=== PATIENT | male | born 1975 | race Hispanic/Latino ===

== ENCOUNTER 2024-08-23 11:06 | Inpatient (IN) | payer SELFPAY ==
[2024-08-23] MEDS ORDERED: Glucagon,Human Recombinant 1 MG Vial IM PRN ×2 (11:08→17:49)
[2024-08-23] MEDS ORDERED: 50% Dextrose in Water 50 ML Syringe IVPUSH PRN ×2 (11:08→17:49)
[2024-08-23 11:18] LABS: BASOPHILS ABSOLUTE AUTO 0.08 K/uL (0.00-0.20); BASOPHILS PERCENT AUTO 0.8 % (0.0-1.0); EOSINOPHILS ABSOLUTE AUTO 0.05 K/uL (0.00-0.45); EOSINOPHILS PERCENT AUTO 0.5 % (0.0-6.0); HEMATOCRIT 42.1 % (42.0-52.0); HEMOGLOBIN 13.9 g/dL (14.0-18.0); IMMATURE GRAN ABSOLUTE AUTO 0.09 K/uL (0.00-0.05); IMMATURE GRAN PERCENT AUTO 0.9 % (0.0-0.4); LYMPHOCYTES ABSOLUTE AUTO 0.91 K/uL (1.00-4.80); LYMPHOCYTES PERCENT AUTO 8.8 % (24.0-44.0); MEAN CORPUSCULAR HEMOGLOBIN 28.2 pg (28.0-32.0); MEAN CORPUSCULAR VOLUME 85.4 fL (83.0-99.0); MEAN PLATELET VOLUME 9.7 fL (9.4-12.4); MONOCYTES ABSOLUTE AUTO 0.35 K/uL (0.00-0.80); MONOCYTES PERCENT AUTO 3.4 % (0.0-8.0); NEUTROPHILS ABSOLUTE AUTO 8.85 K/uL (1.80-7.70); NEUTROPHILS PERCENT AUTO 85.6 % (41.0-71.0); PLATELET COUNT,PLT 350 K/uL (150-400); RED BLOOD CELL COUNT 4.93 M/uL (4.52-5.90); WHITE BLOOD CELL COUNT,WBC 10.33 K/uL (3.9-11.3)
[2024-08-23 11:21] LABS: BASE EXCESS VENOUS -0.5 (-2.0-3.0); PH,VENOUS 7.34 (7.32-7.43)
[2024-08-23] MEDS: Sodium Chloride 0.9% 1,000 ML IV ONE ×2 (11:36→13:30)
[2024-08-23] MEDS: Insulin Regular, Human 100 Units/ML 10 ML Vial IVPUSH ONE ×2 (11:36→14:54)
[2024-08-23] MEDS: Ondansetron 4 MG/2 ML SDV IVPUSH ONE (11:36)
[2024-08-23 11:57] LABS: A/G RATIO 0.7 (0.9-1.6); ACETAMINOPHEN <2.0 ug/mL; ALANINE AMINOTRANSFERASE,ALT 47 IU/L (14-63); ALBUMIN 3.3 g/dL (3.4-5.0); ALKALINE PHOSPHATASE 115 U/L (46-116); ASPARTATE AMNIOTRANSFERASE,AST 43 IU/L (15-37); BILIRUBIN TOTAL 0.3 mg/dL (0.2-1.0); BLOOD UREA NITROGEN,BUN 58 mg/dL (7.0-18.0); CALCIUM 9.6 mg/dL (8.5-10.1); CARBON DIOXIDE,CO2 25.4 mmol/L (21.0-32.0); CHLORIDE,CL 105 mmol/L (98-107); CREATININE 2.8 mg/dL (0.8-1.3); EST CRCL DRUG DOSING (CG) 31.56 mL/min; ETHANOL BLOOD MEDICAL <3 mg/dL; GLUCOSE RANDOM 424 mg/dL (74-106); LIPASE 27 U/L (16-77); MAGNESIUM 2.9 mg/dL (1.8-2.4); POTASSIUM,K 4.3 mmol/L (3.5-5.1); PRO B-TYPE NATRIUR PEPT,BNPPRO 231 pg/mL (0-125); PROTEIN TOTAL,TP 8.1 g/dL (6.4-8.2); SALICYLATE 1.6 mg/dL (0.0-20.0); SODIUM,NA 142 mmol/L (136-148)
[2024-08-23 12:04] LABS: ESTIMATED GFR 27 mL/min (>60)
[2024-08-23] MEDS: Labetalol 100 MG/20 ML MDV IVPUSH ONE (12:24)
[2024-08-23 12:29] LABS: APPEARANCE,URINE CLEAR; BILIRUBIN,URINE NEGATIVE (NEGATIVE); COLOR,URINE YELLOW; GLUCOSE,URINE >=1000 mg/dL (NEGATIVE); KETONES,URINE NEGATIVE (NEGATIVE); LEUKOCYTE ESTERASE,URINE NEGATIVE (NEGATIVE); NITRITE,URINE NEGATIVE (NEGATIVE); OCCULT BLOOD,URINE MODERATE (NEGATIVE); PROTEIN,URINE 100 mg/dL (NEGATIVE); UROBILINOGEN,URINE 0.2 EU/dL (<2.0)
[2024-08-23 12:39] LABS: AMPHETAMINES SCREEN, URINE NEGATIVE (CUTOFF=500); BARBITURATE SCREEN,URINE NEGATIVE (CUTOFF=200); BENZODIAZEPINES SCREEN,URINE NEGATIVE (CUTOFF=150); BUPRENORPHINE SCREEN,URINE NEGATIVE (CUTOFF=10); METHADONE SCREEN, URINE NEGATIVE (CUTOFF=200); METHAMPHETAMINES SCREEN, URINE NEGATIVE (CUTOFF=500); OXYCODONE SCREEN,URINE NEGATIVE (CUT0FF=100); PCP SCREEN,URINE NEGATIVE (CUTOFF=25); THC SCREEN,URINE 20 NG/ML NEGATIVE (CUTOFF=50)
[2024-08-23 13:19] LABS: BACTERIA,URINE RARE (NEGATIVE); EPITHELIAL CELLS,URINE FEW (NONE-FEW); YEAST,URINE FEW
[2024-08-23 14:01] LABS: A/G RATIO 0.7 (0.9-1.6); BILIRUBIN TOTAL 0.2 mg/dL (0.2-1.0); CALCIUM 8.9 mg/dL (8.5-10.1); CARBON DIOXIDE,CO2 25.5 mmol/L (21.0-32.0); CREATININE 2.5 mg/dL (0.8-1.3); EST CRCL DRUG DOSING (CG) 35.35 mL/min; POTASSIUM,K 4.1 mmol/L (3.5-5.1); PROTEIN TOTAL,TP 7.5 g/dL (6.4-8.2)
[2024-08-23] MEDS: hydrALAZINE 20 MG/ML SDV IVPUSH ONE ×2 (14:16→18:51)
[2024-08-23] MEDS: cloNIDine 0.1 MG Tab PO ONE (14:53)
[2024-08-23] MEDS ORDERED: Nitroglycerin 2% Oint 1 GM UD Packet TOP ONE (15:13)
[2024-08-23 15:48] LABS: HEMOGLOBIN A1C 8.9 %
[2024-08-23] MEDS: Sodium Chloride 0.9% 1,000 ML IV SCH (17:57)
[2024-08-23] MEDS: Insulin Aspart 100 Units/ML 3 ML Pen SUBCUT SCH (17:58)
[2024-08-23] MEDS: Labetalol 100 MG/20 ML MDV IVPUSH PRN (18:11)
[2024-08-23] MEDS: Morphine 2 MG/ML SYRINGE IVPUSH ONE (18:11)
[2024-08-23] MEDS: LORazepam 2 MG/ML SDV IVPUSH ONE (18:50)
[2024-08-23] MEDS: amLODIPine 5 MG Tab PO SCH (18:58)
[2024-08-23] MEDS: oxyCODONE 5 MG Tab PO SCH (19:07)
[2024-08-24] MEDS ORDERED: niCARdipine/Normal Saline 20 MG in Premix Bag 1 BAG IV SCH (00:15)
[2024-08-24] MEDS ORDERED: Naloxone 0.4 MG/ML SDV IVPUSH PRN (00:44)
[2024-08-24] MEDS: Carvedilol 12.5 MG Tab PO ONE (01:01)
[2024-08-24] MEDS: Morphine 2 MG/ML SYRINGE IVPUSH ONE (01:03)
[2024-08-24 05:50] LABS: BASOPHILS ABSOLUTE AUTO 0.05 K/uL (0.00-0.20); BASOPHILS PERCENT AUTO 0.4 % (0.0-1.0); EOSINOPHILS ABSOLUTE AUTO 0.38 K/uL (0.00-0.45); EOSINOPHILS PERCENT AUTO 2.8 % (0.0-6.0); HEMATOCRIT 38.5 % (42.0-52.0); HEMOGLOBIN 12.7 g/dL (14.0-18.0); IMMATURE GRAN ABSOLUTE AUTO 0.04 K/uL (0.00-0.05); IMMATURE GRAN PERCENT AUTO 0.3 % (0.0-0.4); LYMPHOCYTES ABSOLUTE AUTO 2.31 K/uL (1.00-4.80); LYMPHOCYTES PERCENT AUTO 17.3 % (24.0-44.0); MEAN CORPUSCULAR HEMOGLOBIN 28.6 pg (28.0-32.0); MEAN CORPUSCULAR VOLUME 86.7 fL (83.0-99.0); MONOCYTES ABSOLUTE AUTO 0.93 K/uL (0.00-0.80); NEUTROPHILS ABSOLUTE AUTO 9.65 K/uL (1.80-7.70); NEUTROPHILS PERCENT AUTO 72.2 % (41.0-71.0); PLATELET COUNT,PLT 315 K/uL (150-400); RED BLOOD CELL COUNT 4.44 M/uL (4.52-5.90); WHITE BLOOD CELL COUNT,WBC 13.36 K/uL (3.9-11.3)
[2024-08-24 06:12] LABS: CALCIUM 8.5 mg/dL (8.5-10.1); CARBON DIOXIDE,CO2 23.4 mmol/L (21.0-32.0); CREATININE 1.8 mg/dL (0.8-1.3); EST CRCL DRUG DOSING (CG) 49.1 mL/min; POTASSIUM,K 3.6 mmol/L (3.5-5.1)
[2024-08-24] MEDS: oxyCODONE 5 MG Tab PO PRN (06:57)
[2024-08-24] MEDS: Ondansetron 4 MG/2 ML SDV IVPUSH PRN (06:57)
[2024-08-24] MEDS: Carvedilol 12.5 MG Tab PO SCH (08:15)
[2024-08-24] MEDS: amLODIPine 5 MG Tab PO ONE (11:22)
[2024-08-24] MEDS: Gabapentin 300 MG Cap PO SCH (20:06)
[2024-08-25 05:27] LABS: BASOPHILS ABSOLUTE AUTO 0.06 K/uL (0.00-0.20); BASOPHILS PERCENT AUTO 0.5 % (0.0-1.0); EOSINOPHILS ABSOLUTE AUTO 0.33 K/uL (0.00-0.45); EOSINOPHILS PERCENT AUTO 2.9 % (0.0-6.0); HEMATOCRIT 38.2 % (42.0-52.0); HEMOGLOBIN 12.6 g/dL (14.0-18.0); IMMATURE GRAN ABSOLUTE AUTO 0.04 K/uL (0.00-0.05); IMMATURE GRAN PERCENT AUTO 0.4 % (0.0-0.4); LYMPHOCYTES ABSOLUTE AUTO 2.11 K/uL (1.00-4.80); LYMPHOCYTES PERCENT AUTO 18.5 % (24.0-44.0); MEAN CORPUSCULAR HEMOGLOBIN 28.5 pg (28.0-32.0); MEAN CORPUSCULAR VOLUME 86.4 fL (83.0-99.0); MEAN PLATELET VOLUME 9.5 fL (9.4-12.4); MONOCYTES ABSOLUTE AUTO 0.75 K/uL (0.00-0.80); MONOCYTES PERCENT AUTO 6.6 % (0.0-8.0); NEUTROPHILS PERCENT AUTO 71.1 % (41.0-71.0); PLATELET COUNT,PLT 326 K/uL (150-400); RED BLOOD CELL COUNT 4.42 M/uL (4.52-5.90); WHITE BLOOD CELL COUNT,WBC 11.39 K/uL (3.9-11.3)
[2024-08-25 05:45] LABS: CALCIUM 8.5 mg/dL (8.5-10.1); CARBON DIOXIDE,CO2 24.9 mmol/L (21.0-32.0); CREATININE 1.5 mg/dL (0.8-1.3); EST CRCL DRUG DOSING (CG) 58.92 mL/min; POTASSIUM,K 3.6 mmol/L (3.5-5.1)
[2024-08-25] MEDS: amLODIPine 5 MG Tab PO SCH (09:17)
[2024-08-25] MEDS: Losartan 50 MG Tab PO SCH (09:58)
[2024-08-25] MEDS: Hydrochlorothiazide 25 MG Tab PO SCH (09:58)
[2024-08-25] MEDS: Insulin Glargine,Human Rec. Analog 100 Units/ML 3 ML Pen SUBCUT SCH (10:04)
[2024-08-25] MEDS: Sodium Chloride 0.9% 1,000 ML IV SCH (10:15)
[2024-08-25] MEDS: Heparin Sodium 5,000 Units/ML Vial SUBCUT SCH (11:17)
[2024-08-25] MEDS: Measles, Mumps & Rubella Vaccine 0.5 ML SDV SUBCUT ONE (15:20)
[2024-08-25] MEDS: Acetaminophen 325 MG Tab PO PRN (15:32)
[2024-08-25] MEDS: Lidocaine 4% Patch TOP SCH (15:32)
[2024-08-25] MEDS: cloNIDine 0.1 MG Tab PO ONE (21:23)
[2024-08-26 06:06] LABS: BASOPHILS ABSOLUTE AUTO 0.06 K/uL (0.00-0.20); BASOPHILS PERCENT AUTO 0.6 % (0.0-1.0); EOSINOPHILS ABSOLUTE AUTO 0.35 K/uL (0.00-0.45); EOSINOPHILS PERCENT AUTO 3.5 % (0.0-6.0); HEMATOCRIT 42.7 % (42.0-52.0); HEMOGLOBIN 13.7 g/dL (14.0-18.0); IMMATURE GRAN ABSOLUTE AUTO 0.03 K/uL (0.00-0.05); IMMATURE GRAN PERCENT AUTO 0.3 % (0.0-0.4); LYMPHOCYTES ABSOLUTE AUTO 2.33 K/uL (1.00-4.80); LYMPHOCYTES PERCENT AUTO 23.4 % (24.0-44.0); MEAN CORPUSCULAR HEMOGLOBIN 27.8 pg (28.0-32.0); MEAN CORPUSCULAR HGB CONC 32.1 g/dL (32.0-36.0); MEAN CORPUSCULAR VOLUME 86.8 fL (83.0-99.0); MEAN PLATELET VOLUME 9.2 fL (9.4-12.4); MONOCYTES ABSOLUTE AUTO 0.83 K/uL (0.00-0.80); MONOCYTES PERCENT AUTO 8.3 % (0.0-8.0); NEUTROPHILS ABSOLUTE AUTO 6.37 K/uL (1.80-7.70); NEUTROPHILS PERCENT AUTO 63.9 % (41.0-71.0); PLATELET COUNT,PLT 365 K/uL (150-400); RED BLOOD CELL COUNT 4.92 M/uL (4.52-5.90); WHITE BLOOD CELL COUNT,WBC 9.97 K/uL (3.9-11.3)
[2024-08-26 06:42] LABS: CALCIUM 8.9 mg/dL (8.5-10.1); CARBON DIOXIDE,CO2 24.7 mmol/L (21.0-32.0); CREATININE 1.7 mg/dL (0.8-1.3); EST CRCL DRUG DOSING (CG) 51.99 mL/min; POTASSIUM,K 3.4 mmol/L (3.5-5.1)
[2024-08-26 13:32] VITALS: PULSE 82
[2024-08-27 01:07] VITALS: BP 155/78
== END 2024-08-26 13:51 | disposition home or self-care (01) | DRG 683 ==
LOC: MW.ED 11:06 → MW.MS 14:39 → OBSVTOIN 08-24 11:25 → MW.MS 08-24 15:34
PROVIDERS: ADMIT Internal Medicine; ATTEND Internal Medicine
DX: N17.9 Acute kidney failure, unspecified (principal); F11.93 Opioid use, unspecified with withdrawal; E86.0 Dehydration; E11.22 Type 2 diabetes mellitus with diabetic chronic kidney disease; I12.9 Hypertensive chronic kidney disease with stage 1 through stage 4 chronic kidney disease, or unspecified chronic kidney disease; N18.9 Chronic kidney disease, unspecified; I25.10 Atherosclerotic heart disease of native coronary artery without angina pectoris; G89.29 Other chronic pain; M54.9 Dorsalgia, unspecified; E11.65 Type 2 diabetes mellitus with hyperglycemia; R42 Dizziness and giddiness; R11.2 Nausea with vomiting, unspecified; Z79.4 Long term (current) use of insulin; Z79.82 Long term (current) use of aspirin; Z79.899 Other long term (current) drug therapy; Z95.5 Presence of coronary angioplasty implant and graft; Z91.148 Patient's other noncompliance with medication regimen for other reason
CPT/HCPCS: 36415; 70450; 70450-26; 71045; 71045-26; 73030-26-LT; 73030-LT; 80048; 80053; 80143; 80179; 80305; 80307; 81001; 82009; 82803; 82947; 83036; 83605; 83690; 83735; 83880; 84484; 85025; 87040; 90707; 93005; 93010; 96361; 96374; 96375; 96376; 97161-GP; 97165-GO; 99285; 99285-25; A9270-GY; G0378; J0360; J1815-GY; J1920; J2060; J2270; J2405; J7030